=== PATIENT | male | born 1990 | race Hispanic/Latino ===

== ENCOUNTER 2020-05-19 03:15 | Emergency (ER) | payer SELFPAY ==
[2020-05-19] MEDS ORDERED: Lidocaine 1% (PF) 30 ML VIAL ONE (03:20)
== END 2020-05-19 03:39 ==
LOC: ERS 03:15
DX: S01.512A Laceration without foreign body of oral cavity, initial encounter (principal); F10.129 Alcohol abuse with intoxication, unspecified; J45.909 Unspecified asthma, uncomplicated; F41.9 Anxiety disorder, unspecified; W22.8XXA Striking against or struck by other objects, initial encounter
CPT/HCPCS: 12011; J2001